=== PATIENT | male | born 1995 | race Caucasian/White ===

== ENCOUNTER 2017-03-17 11:34 | Emergency (ER) | payer MEDICAID ==
[2017-03-17 11:52] VITALS: BP 124/80
--- NOTE | 2017-03-17 12:44 | ED Physician Documentation ---
PD HPI OPHTHO - Stated complaint Stated Complaint: LEFT EYE IRRITATION - Chief complaint Chief Complaint: Heent - History obtained from History obtained from: Patient - History of Present Illness Timing - onset: How many days ago (2) Timing - duration: Days (2) Timing - details: Gradual onset Pain level max: 3 Pain level now: 3 Location: Left Quality / character: Aching Associated symptoms: Redness, Swelling Contributing factors: No: Exposed to conjunctivitis, Recent URI, Chemical exposure, acid, Chemical exposure, base, Blunt trauma, Wears glasses, Wears contacts - Additional information Additional information: lower eyelid swelling and redness. Review of Systems Constitutional: denies: Fever Eyes: denies: Loss of vision, Decreased vision, Photophobia Ears: denies: Ear pain Nose: denies: Rhinorrhea / runny nose, Congestion PD PAST MEDICAL HISTORY - Past Medical History Past Medical History: No - Past Surgical History Past Surgical History: No - Present Medications Home Medications: Ambulatory Orders Medication Instructions Recorded Confirmed Polymyxin B Sulf/Trimethoprim 1 drop LEFTEYE Q3H 7 Days drops 03/17/17 [Polytrim Eye Drops] - Allergies Allergies/Adverse Reactions: Allergies Allergy/AdvReac Type Severity Reaction Status Date / Time No Known Drug Allergies Allergy Verified 03/17/17 11:52 - Social History Does the pt smoke?: Yes Smoking Status: Current every day smoker Does the pt drink ETOH?: No Does the pt have substance abuse?: Yes Substance Use and Type: Marijuana PD ED PE NORMAL - Vitals Vital signs reviewed: Yes - General General: Alert and oriented X 3 - HEENT HEENT: Moist mucous membranes, Other (No conjunctival injection or irritation. The lower eyelid of the left eye reveals what appears to be an external hordeolum. Mild swelling and firmness.) - Derm Derm: Warm and dry - Neuro Neuro: Alert and oriented X 3 Results - Vitals Vitals: Vital Signs - 24 hr 03/17/17 11:50 Temperature 36.6 C Heart Rate 98 Respiratory 16 Rate Blood Pressure 124/80 O2 Saturation 97 Oxygen O2 Source Room air PD MEDICAL DECISION MAKING - ED course Complexity details: considered differential, d/w patient ED course: Patient with a left eye lower eyelid external hordeolum. Has tried warm compresses without relief at home. Will try topical antibiotics and see how this progresses. We will have him follow-up with his PCP or ophthalmology for repeat evaluation if he fails to improve or worsens. Patient does not wear contacts or glasses. Denies any trauma. Normal examination of the eye itself. Patient counseled regarding signs and symptoms for which I believe and urgent re -evaluation would be necessary. Patient with good understanding of and agreement to plan and is comfortable going home at this time This document was made in part using voice recognition software. While efforts are made to proofread this document, sound alike and grammatical errors may occur. Departure - Departure Disposition: 01 Home, Self Care Clinical Impression: Sty Qualifiers: Laterality: left Eyelid: lower Qualified Code(s): H00.015 - Hordeolum externum left lower eyelid Condition: Good Instructions: ED [facility] Follow-Up: Bradford Gonzales MD [Provider Admit Priv/Credential] - Price Veliz MD [Provider Admit Priv/Credential] - Prescriptions: Polymyxin B Sulf/Trimethoprim [Polytrim Eye Drops] 1 drop LEFTEYE Q3H 7 Days drops Comments: Return if you worsen. Use warm compresses 3 times daily. Use the antibiotics as prescribed. Discharge Date/Time: 03/17/17 12:48
== END 2017-03-17 12:48 | disposition home or self-care (01) ==
LOC: ED 11:34
DX: H00.015 Hordeolum externum left lower eyelid (principal); F17.200 Nicotine dependence, unspecified, uncomplicated
CPT/HCPCS: 99283